=== PATIENT | male | born 1950 | race Caucasian/White ===

== ENCOUNTER 2017-07-16 11:49 | Emergency (ER) | payer MEDICARE, OTHER | END 2017-07-16 14:05 | disposition home or self-care (01) | LOC: ER 11:49 | DX: I46.9 Cardiac arrest, cause unspecified (principal); W01.0XXA Fall on same level from slipping, tripping and stumbling without subsequent striking against object, initial encounter; Y93.A1 Activity, exercise machines primarily for cardiorespiratory conditioning; Y92.89 Other specified places as the place of occurrence of the external cause; Y99.8 Other external cause status | CPT/HCPCS: 92950; 99285 ==